=== PATIENT | male | born 1960 | race Caucasian/White ===

== ENCOUNTER 2018-01-29 08:51 | Emergency (ER) | payer BC ==
[~2018-01-29] VITALS: Ht 167.6 cm; Wt 72.9 kg
[2018-01-29 08:54] VITALS: BP 133/93; PULSE 79; TEMP 36.7; O2SAT 94; Ht 167.6 cm; Wt 72.9 kg
[2018-01-29] MEDS ORDERED: XYLOCAINE 1%/SOD BICARB 20 ML VIAL INFIL ONE (08:57)
[2018-01-29] MEDS ORDERED: DIPHTHERIA/TETANUS/PERTUSSIS 0.5 ML SYR/VIAL IM. ONE (09:45)
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
== END 2018-01-29 09:45 | disposition home or self-care (01) ==
LOC: C.EDB 08:53 → C.EDA 09:45
DX: S01.112A Laceration without foreign body of left eyelid and periocular area, initial encounter (principal); W01.190A Fall on same level from slipping, tripping and stumbling with subsequent striking against furniture, initial encounter; Y93.01 Activity, walking, marching and hiking; Y99.8 Other external cause status; Y92.039 Unspecified place in apartment as the place of occurrence of the external cause; Z23 Encounter for immunization

== ENCOUNTER 2018-02-03 08:21 | Emergency (ER) | payer BC ==
[2018-02-03] MEDS ORDERED: MELO-84 PO (08:44)
[2018-02-03] MEDS ORDERED: CYCL10TA6 PO (08:44)
[2018-02-03] MEDS ORDERED: METO50TA16 PO (08:44)
[2018-02-03] MEDS ORDERED: CLON1TAB3 PO (08:44)
[2018-02-03 09:08] VITALS: BP 135/93; PULSE 86; TEMP 36.5; O2SAT 100
--- NOTE | 2018-02-03 16:00 | EMERGENCY ROOM VISIT NOTE ---
ED Visit Note First contact with patient: 08:25 CHIEF COMPLAINT: Suture removal. HISTORY OF PRESENT ILLNESS: Mr. Grover is a 57-year-old white male who ambulates into the ED requesting suture removal for a left orbital laceration he sustained 6 days ago. He reports since being discharged she feels like the laceration is healing well. He denies any pain, swelling, redness or drainage from the wound. He also reports she has not been having any fevers or chills or visual changes. PHYSICAL EXAM: Vital Signs: Date Time Temp Pulse Resp B/P (MAP) Pulse Ox O2 Delivery O2 Flow Rate FiO2 02/03/18 08:26 36.5 86 20 135/93 100 Room Air General: 57-year-old white male in no acute distress, nontoxic-appearing, afebrile and hemodynamically stable. Neurological: Awake, alert and oriented 3. Answering questions appropriately and following commands. No focal motor or sensory deficits. Face: Clean dry and intact wound left superior and through the eyebrow without signs of infection (erythema, swelling, tenderness, purulent drainage). ED COURSE: Patient is assessed as noted above. Patient's medication list was reviewed. 13 sutures were removed without any difficulty and there was no separation of the wound edges. Patient was educated about today's findings and instructed on his treatment plan ; he verbalized understanding and agreement with this plan. DISPOSITION: Patient discharged home in stable condition. CLINICAL IMPRESSION: Suture removal; Well healing laceration. PLAN: Patient was encouraged to continue current treatment plan for wound care and signs of infection. Patient was encouraged to return to the ED or follow-up with his family physician for any signs of infection or any new/concerning symptoms.
== END 2018-02-03 09:08 | disposition home or self-care (01) ==
LOC: C.EDB 08:22 → C.EDA 09:08
DX: S01.112D Laceration without foreign body of left eyelid and periocular area, subsequent encounter (principal); X58.XXXD Exposure to other specified factors, subsequent encounter